=== PATIENT | male | born 1960 | race Caucasian/White ===

== ENCOUNTER 2023-10-19 15:33 | Emergency (ER) | payer BC, SELFPAY ==
[2023-10-19 16:00] VITALS: BP 165/89
--- NOTE | 2023-10-19 16:55 | ED.GENMED ---
History of Present Illness
General
Chief Complaint: Breathing Problem
Source: patient
Exam Limitations: none
Time Seen by Provider: 10/19/23 16:33
Travel History
Have you had any contact with someone who has COVID-19?: No
Do you have any symptoms of coronavirus? Fever > 100 degrees, chills, cough, shortness of breath, sore throat, loss of taste or smell, muscle aches, or headache?: No
History of Present Illness
History of Present Illness:
63-year-old male with history of hypertension prior smoker presents complaining of 4 days worth of worsening shortness of breath cough and wheeze. He denies a fever. His symptoms are worse when laying down. He denies any significant leg swelling
calf pain or travel. No nausea vomiting. No known sick contacts. He stopped smoking about 7 years ago. He denies dizziness. No other complaints at this time
Phy Exam
Physical Exam
Physical Exam:
General: Well-appearing male with slight increased work of breathing
Heart: Regular rate and rhythm no murmurs
Lungs: Inspiratory wheeze bilaterally. Breath sounds otherwise diminished likely secondary to body habitus
Abdomen soft nontender nondistended no guarding rebound normal bowel sounds
Extremities: No cyanosis or edema
Skin: Warm without rashes
Scores
Heart Failure Risk
Heart Failure Risk Score: Not Applicable
Course
Orders/Labs/Results
Orders:
Orders
10/19/23 16:05
Electrocardiogram (*1) Urgent
Reason for Study: Chest Pain
EKG- Treatment ONCE
10/19/23 16:12
Electrocardiogram (*1) Urgent
Reason for Study: Chest Pain
EKG- Treatment ONCE
Chest [CR Chest - 2 Views ] Urgent
Comment:
Reason For Exam: sob
10/19/23 16:48
Dexamethasone Sod Phosphate [Decadron] 10 mg IV NOW STA
Ipratropium/Albuterol Sulfate [Duoneb] 3 ml INH R NOW ONE
10/19/23 17:13
COVID-19 Antigen Urgent
Source: Nasal Swab
Complete Blood Count/With Diff Urgent
Comprehensive Metabolic Panel Urgent
Pro-BNP [NT-proBNP] Urgent
Troponin I Urgent
Influenza A+B Rapid Molecular Urgent
RAJNI Source: Nasal Swab
Specimen Description:
Abnormal Lab Results
10/19/23
17:13
WBC 12.7 H 10^3/uL
(4.8-10.8)
RBC 4.69 L 10^6/uL
(4.70-6.10)
MPV 10.7 H fL
(7.4-10.4)
Abs Immat Gran (auto) 0.1 H 10^3/uL
(0-0.05)
Absolute Neuts (auto) 8.6 H 10^3/uL
(1.4-6.5)
Absolute Monos (auto) 1.0 H 10^3/uL
(0.1-0.6)
Absolute Eos (auto) 1.0 H 10^3/uL
(0-0.7)
Immature Gran % 0.9 H %
(0-0.5)
Lymphocytes % 14.2 L %
(20.5-51.1)
Eosinophils % 7.9 H %
(0-6)
Chloride 97 L mmol/L
(98-107)
BUN 23 H mg/dl
(9-20)
Glucose 104 H mg/dl
(70-99)
10/19/23 17:13
10/19/23 17:13
Vital Signs
Initial and Last Documented VS:
Initial Vital Signs
Temp Pulse Resp BP Pulse Ox
97.9 F 95 22 165/89 94
10/19/23 16:00 10/19/23 16:00 10/19/23 16:00 10/19/23 16:00 10/19/23 16:00
Last Documented Vital Signs
Temp Pulse Resp BP Pulse Ox
97.9 F 89 18 148/76 94
10/19/23 16:00 10/19/23 17:17 10/19/23 17:17 10/19/23 17:17 10/19/23 17:18
MDM/Problems Addressed
Differential Diagnosis Includes:
Shortness of breath, wheeze. Differential could include bronchitis versus COVID versus flu. No PE risk factors. Will check chest x-ray. Ordered DuoNeb and Decadron. Labs pending including BNP however patient does not appear volume overloaded.
*Critical Care Note
Total Time (30-74mins, 75-104mins- exclusive of procedures): Not Applicable
Update Note
Update Note:
Patient feeling better after DuoNeb. Patient also given Decadron. Chest x-ray is clear. Labs reviewed without significant finding. I do suspect acute bronchitis. Will send home on albuterol and steroid. He is a former smoker will cover with
doxycycline as well. Return precautions were given. He is not hypoxic in no respiratory distress upon reassessment
ED Attending Note
-
Portions of this chart may have been created with voice recognition software.� Occasional wrong word or��sound alike� substitutions may have occurred due to the inherent limitations of voice recognition software.
Discharge Plan
Departure
Patient Disposition: Home (Routine Discharge)
Date of Disposition: 10/19/23
Time of Disposition: 18:10
Patient with high blood pressure during this ER visit?: No
Discharge Problem:
Acute bronchitis
Instructions: Acute bronchitis
Prescriptions:
New
albuterol sulfate [ProAir HFA] 90 mcg/actuation HFA aerosol inhaler
1 puff inhalation Q4HPRN PRN (Reason: shortness of breath) Qty: 6.7 0RF
prednisone 20 mg tablet
40 mg PO DAILY 5 Days Qty: 10 0RF
doxycycline hyclate 100 mg capsule
100 mg PO BID Qty: 14 0RF
No Action
atorvastatin [Lipitor] 40 mg Tablet
40 mg PO QPM
lisinopril 20 mg Tablet
20 mg PO DAILY
amlodipine [Norvasc] 5 mg Tablet
5 mg PO DAILY
Referrals:
Eladia Montesinos CRNP [Family Provider] -
Activity Restrictions/Additional Instructions:
Continue with inhaler and steroids as directed. Use antibiotics as directed. Please return here for increased shortness of breath trouble breathing or other concerning finding
Interventions
Interventions:
*Risk Screen - Suicide Last Done: 10/19/23 17:05
*General Assessment Last Done: 10/19/23 17:05
*Neglect/Abuse Screening Last Done: 10/19/23 17:05
*ED COVID-19 Vaccine History Last Done: 10/19/23 17:05
ED- Cardiac Assessment Last Done: 10/19/23 17:18
ED- Pulmonary Assessment Last Done: 10/19/23 17:18
[2023-10-19 17:04] VITALS: BMI 43.6
[2023-10-19] MEDS: DECADRON 10 MG IV (17:13)
[2023-10-19 17:17] VITALS: BP 148/76
[2023-10-19] MEDS: DUONEB 3 ML INH (17:20)
[2023-10-19 17:25] LABS: % Basophils 1.2 % (0-2); % Eosinophils 7.9 % (0-6); % Immature Granulocytes 0.9 % (0-0.5); % Lymphocytes 14.2 % (20.5-51.1); % Monocytes 8.2 % (1.7-9.3); % Neutrophils 67.6 % (42.2-75.2); Absolute Basophils 0.2 10^3/uL (0-0.2); Absolute Immature Granulocytes 0.1 10^3/uL (0-0.05); Absolute Lymphocytes 1.8 10^3/uL (1.2-3.4); Absolute Neutrophils 8.6 10^3/uL (1.4-6.5); Hematocrit 42.3 % (39.0-52.0); Hemoglobin 14.1 g/dL (13.0-18.0); Mean Corp Hgb Conc. 33.3 g/dL (33.0-37.0); Mean Corpuscular Hgb 30.1 pg (27.0-31.0); Mean Corpuscular Volume 90.2 fL (80.0-94.0); Mean Platelet Volume 10.7 fL (7.4-10.4); Nucleated Red Blood Cells % 0 % (-); Platelet Count 277 10^3/uL (130-400); Red Blood Cell Count 4.69 10^6/uL (4.70-6.10); Red Cell Dist. Width 13.1 % (11.5-14.5); White Blood Cell Count 12.7 10^3/uL (4.8-10.8)
[2023-10-19 17:40] LABS: COVID-19 Antigen Negative (Negative)
[2023-10-19 17:44] LABS: ALT (SGPT) 36 U/L (0-50); AST (SGOT) 23 U/L (17-59); Albumin 4.4 g/dl (3.5-5.0); Alkaline Phosphatase 100 U/L (38-126); Blood Urea Nitrogen 23 mg/dl (9-20); Calcium 9.7 mg/dl (8.4-10.2); Carbon Dioxide 27 mmol/L (22-30); Chloride 97 mmol/L (98-107); Estimated Creatinine Clearance 92 ml/min; Glucose 104 mg/dl (70-99); Potassium 4.8 mmol/L (3.5-5.1); Sodium 136 mmol/L (135-145); Total Bilirubin 0.6 mg/dl (0.2-1.3); Total Protein 7.4 g/dl (6.3-8.2); eGFR > 60.00
[2023-10-19 17:56] LABS: NT-proBNP < 20.0 pg/ml; Troponin I < 0.012 ng/ml
[2023-10-19 18:00] VITALS: BP 162/86
== END 2023-10-19 18:28 | disposition home or self-care (01) ==
LOC: EMR 15:33
PROVIDERS: Physician Assistant; Student in an Organized Health Care Education/Training Program; EMERGENCY PHYSICIAN Emergency Medicine; FAMILY PHYSICIAN Nurse Practitioner Family
DX: J20.9 Acute bronchitis, unspecified (principal); Z11.52 Encounter for screening for COVID-19; Z87.891 Personal history of nicotine dependence
CPT/HCPCS: 99285; 96374; 94640; 71046; 80053; 83880; 84484; 85025; 87502; 87811; 93005

== ENCOUNTER 2023-11-30 12:30 | Emergency (ER) | payer BC, SELFPAY ==
[2023-11-30 12:35] VITALS: BP 143/81
[2023-11-30 14:25] VITALS: BMI 42.2
[2023-11-30] MEDS: ZITHROMAX 500 MG PO (15:18)
[2023-11-30] MEDS: DUONEB 3 ML INH (15:18)
[2023-11-30] MEDS: ROCEPHIN 2000 MG IV (15:26)
[2023-11-30 15:32] LABS: % Basophils 0.9 % (0-2); % Immature Granulocytes 0.9 % (0-0.5); % Lymphocytes 6.9 % (20.5-51.1); % Monocytes 2.8 % (1.7-9.3); % Neutrophils 86.5 % (42.2-75.2); Absolute Basophils 0.1 10^3/uL (0-0.2); Absolute Eosinophils 0.2 10^3/uL (0-0.7); Absolute Immature Granulocytes 0.1 10^3/uL (0-0.05); Absolute Lymphocytes 0.8 10^3/uL (1.2-3.4); Absolute Monocytes 0.3 10^3/uL (0.1-0.6); Absolute Neutrophils 9.5 10^3/uL (1.4-6.5); Mean Corp Hgb Conc. 33.3 g/dL (33.0-37.0); Mean Corpuscular Hgb 29.8 pg (27.0-31.0); Mean Corpuscular Volume 89.4 fL (80.0-94.0); Mean Platelet Volume 10.4 fL (7.4-10.4); Nucleated Red Blood Cells % 0 % (-); Platelet Count 299 10^3/uL (130-400); Red Cell Dist. Width 13.4 % (11.5-14.5)
[2023-11-30 15:50] LABS: Blood Urea Nitrogen 14 mg/dl (9-20); Calcium 9.7 mg/dl (8.4-10.2); Carbon Dioxide 27 mmol/L (22-30); Chloride 100 mmol/L (98-107); Estimated Creatinine Clearance 99 ml/min; Glucose 119 mg/dl (70-99); Potassium 4.7 mmol/L (3.5-5.1); Sodium 136 mmol/L (135-145); eGFR > 60.00
--- NOTE | 2023-11-30 16:39 | ED.GENMED ---
History of Present Illness
General
Chief Complaint: Breathing Problem
Source: patient
Exam Limitations: none
Time Seen by Provider: 11/30/23 14:09
Nursing documentation reviewed up to this point in time: agreed with
Travel History
Have you had any contact with someone who has COVID-19?: No
Do you have any symptoms of coronavirus? Fever > 100 degrees, chills, cough, shortness of breath, sore throat, loss of taste or smell, muscle aches, or headache?: No
History of Present Illness
History of Present Illness:
63-year-old male with past medical history of hypertension hyperlipidemia and was a previous smoker presenting to the emergency department today with concerns of shortness of breath this morning took a steroid and seems to have some improvement of
symptoms since. Had similar symptoms a few weeks ago treated with an antibiotic and steroid which seem to improve at the time. Denies any specific chest pain nausea vomiting numbness weakness or fevers
Review of Systems
Review of Systems
Allergies reviewed?: Yes
All Other Systems: ROS reviewed and negative except as documented in HPI and ROS
Phy Exam
Physical Exam
Physical Exam:
GENERAL: Alert , in no apparent distress
EYE: pupils equal and reactive
NECK: Supple, no significant adenopathy.
ENT: o/p clr, mmm.
CARDIAC: Regular rate and rhythm .
LUNGS: Diffuse inspiratory and expiratory wheezing.
ABDOMEN: Soft, without focal tenderness, no r/g, no cvat
NEUROLOGICAL: Alert and oriented, no focal neuro deficits
SKIN: Warm and dry, skin intact.
MUSCULOSKELETAL: No edema, well perfused.
PSYCH: Normal and appropriate interaction.
Scores
Heart Failure Risk
Heart Failure Risk Score: Not Applicable
Course
Orders/Labs/Results
Orders:
Orders
11/30/23 12:38
Electrocardiogram (*1) Urgent
Reason for Study: Shortness of Breath
EKG- Treatment ONCE
CR Chest - 2 Views Urgent
Comment:
Reason For Exam: SOB
11/30/23 14:54
Azithromycin [Zithromax] 500 mg PO NOW STA
CefTRIAXone [Rocephin] 2,000 mg IV NOW STA
Ipratropium/Albuterol Sulfate [Duoneb] 3 ml INH R NOW ONE
11/30/23 15:15
BMP [Basic Metabolic Panel] Urgent
CBC/With Diff [Complete Blood Count/With Diff] Urgent
Abnormal Lab Results
11/30/23
15:15
WBC 11.0 H 10^3/uL
(4.8-10.8)
Abs Immat Gran (auto) 0.1 H 10^3/uL
(0-0.05)
Absolute Neuts (auto) 9.5 H 10^3/uL
(1.4-6.5)
Absolute Lymphs (auto) 0.8 L 10^3/uL
(1.2-3.4)
Immature Gran % 0.9 H %
(0-0.5)
Neutrophils % 86.5 H %
(42.2-75.2)
Lymphocytes % 6.9 L %
(20.5-51.1)
Glucose 119 H mg/dl
(70-99)
11/30/23 15:15
11/30/23 15:15
Vital Signs
Initial and Last Documented VS:
Initial Vital Signs
Temp Pulse Resp BP Pulse Ox
98.2 F 111 20 143/81 91
11/30/23 12:35 11/30/23 12:35 11/30/23 12:35 11/30/23 12:35 11/30/23 12:35
Last Documented Vital Signs
Temp Pulse Resp BP Pulse Ox
98.2 F 111 20 143/81 95
11/30/23 12:35 03/15/24 12:35 11/30/23 12:35 11/30/23 12:35 11/30/23 14:28
MDM/Problems Addressed
MDM/Problems Addressed:
63-year-old male presenting to the emergency department today with concerns of shortness of breath this morning similar to an episode he had a few weeks ago. On arrival initial heart rate mildly elevated however this improved without specific
treatment into the 90s normal. Pulse ox in the low 90 never moving to the 80s was able to ambulate in the room and able to speak in full sentences throughout pulse ox never below 91%. Patient is a longtime smoker and seems to be symptoms
consistent with COPD exacerbation. X-ray without signs of obvious pneumonia. Longer course of steroid advised for close outpatient follow-up for reassessment otherwise does have an inhaler at home return precautions given.
*Critical Care Note
Total Time (30-74mins, 75-104mins- exclusive of procedures): Not Applicable
ED Attending Note
-
Portions of this chart may have been created with voice recognition software.� Occasional wrong word or��sound alike� substitutions may have occurred due to the inherent limitations of voice recognition software.
Discharge Plan
Departure
Patient Disposition: Home (Routine Discharge)
Date of Disposition: 11/30/23
Time of Disposition: 16:40
Patient with high blood pressure during this ER visit?: No
Condition: Good
Covid-19: Not Applicable
Discharge Problem:
Diffuse wheezing
Instructions: Exacerbation of COPD (DC)
Prescriptions:
New
prednisone 10 mg Tablet
See Rx Instructions .ROUTE .COMPLEX Qty: 45 0RF
Rx Instructions:
Take By Mouth:
50 mg daily x3 days, 40 mg daily x3 days,
30 mg daily x3 days, 20 mg daily x3 days,
10 mg daily x3 days
No Action
atorvastatin [Lipitor] 40 mg Tablet
40 mg PO DAILY
lisinopril 20 mg Tablet
20 mg PO DAILY
amlodipine [Norvasc] 5 mg Tablet
5 mg PO QPM
albuterol sulfate 2.5 mg /3 mL (0.083 %) Solution For Nebulization
2.5 mg INHALATION R Q4HPRN PRN (Reason: sob)
omeprazole 40 mg Capsule,Delayed Release(Dr/Ec)
40 mg PO DAILY
methylprednisolone [Medrol (Faraz)] 4 mg Tablets,Dose Pack
0 mg PO PER PKG DIR
Patient Comments:
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
Anoro Ellipta 62.5-25 mcg/actuation Blister With Device
1 inh INHALATION R DAILY
albuterol sulfate [ProAir HFA] 90 mcg/actuation HFA aerosol inhaler
1 puff inhalation R Q4HPRN PRN (Reason: shortness of breath)
meloxicam [Mobic] 15 mg Tablet
15 mg PO DAILY
Referrals:
Eladia Montesinos CRNP [Family Provider] -
Activity Restrictions/Additional Instructions:
You came to the emergency department today with concerns of wheezing. Here you have an improvement of symptoms. Your exam otherwise was reassuring. Please take the steroid taper and follow-up closely as an outpatient for reassessment within 1
week. Return to the emergency department any worsening, new or concerning symptoms.
Interventions
Interventions:
*Risk Screen - Suicide Last Done: 11/30/23 12:35
*General Assessment Last Done: 11/30/23 12:35
*Neglect/Abuse Screening Last Done: 11/30/23 14:04
ED- Fall Risk Assessment Last Done: 11/30/23 14:28
*ED COVID-19 Vaccine History Last Done: 11/30/23 14:04
ED- Cardiac Assessment Last Done: 11/30/23 14:25
ED- Pulmonary Assessment Last Done: 11/30/23 14:25
[2023-11-30 17:04] VITALS: BP 130/65
== END 2023-11-30 17:05 | disposition home or self-care (01) ==
LOC: EMR 12:30
PROVIDERS: Physician Assistant; EMERGENCY PHYSICIAN Emergency Medicine; FAMILY PHYSICIAN Nurse Practitioner Family
DX: R06.2 Wheezing (principal); I10 Essential (primary) hypertension; E78.5 Hyperlipidemia, unspecified; F17.200 Nicotine dependence, unspecified, uncomplicated
CPT/HCPCS: 99285; 96374; 94640; 71046; 80048; 85025; 93005